=== PATIENT | female | born 1960 | race Caucasian/White ===

== ENCOUNTER 2017-12-07 16:32 | Emergency (ER) | payer SELFPAY ==
[2017-12-07 16:36] VITALS: TEMP 97.4
[2017-12-07 17:31] LABS: BASO # 0.1 K/uL (0.0-0.2); BASO % 1.5 % (0.0-2.0); EOS % 0.4 % (0.0-4.0); HEMOGLOBIN 12.1 g/dL (12.0-16.0); LYMPH # 4.8 K/uL (1.0-4.3); MEAN CELL VOLUME 92.4 fl (81.0-99.0); MEAN CORPUSCULAR HEMOGLOBIN 30.7 pg (27.0-31.0); MEAN CORPUSCULAR HGB CONC 33.2 g/dL (33.0-37.0); MEAN PLATELET VOLUME 7.6 fl (7.2-11.7); MONO # 0.3 K/uL (0.0-0.8); MONO % 4.6 % (0.0-10.0); NEUT # 2.2 K/uL (1.8-7.0); NEUT % 29.5 % (50.0-75.0); NRBC % 0.2 % (0.0-0.0); RBC 3.96 Mil/uL (3.80-5.20); RED CELL DISTRIBUTION WIDTH 17.8 % (11.5-14.5); WHITE BLOOD COUNT 7.5 K/uL (4.8-10.8)
[2017-12-07 18:09] LABS: ALB/GLOB RATIO 1.3 (1.0-2.1); ALBUMIN 3.8 g/dL (3.5-5.0); ALT/SGPT 69 U/L (9-52); AST/SGOT 91 U/L (14-36); BLOOD UREA NITROGEN 12 mg/dl (7-17); CALCIUM 8.6 mg/dL (8.4-10.2); GFR AFRICAN-AMERICAN > 60; GFR NON-AFRICAN AMERICAN > 60
--- NOTE | 2017-12-07 18:13 | ED PDOC ---
HPI: Psych/Substance Abuse Time Seen by Provider: 12/07/17 16:39 Chief Complaint (Nursing): Alcohol Ingestion Chief Complaint (Provider): EMS arrival possible intoxication found at train station ED Caveat: Intoxicated History Per: Patient History/Exam Limitations: no limitations Onset/Duration Of Symptoms: Days Current Symptoms Are (Timing): Still Present Suicide/Self Injury Attempted (Context): None Severity: None Associated Symptoms: denies: Depression, Paranoia, Suicidal Thoughts Additional Complaint(s): 57yo female per EMS found at train station, possibly intoxicated, per report coming from work in [place] to home in [place], found on ground. Patient is not forthcoming with history, work colleague accompanying her, states she appeared disoriented and dizzy. EMS stated they smelled etoh. Patient states she fell last week seen at [facility] had CT brain neg and wound repair to occipital scalp. 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 Did not eat much today. Past Medical History Reviewed: Historical Data, Nursing Documentation, Vital Signs, Unable To Obtain Vital Signs: Last Vital Signs Temp 97.4 F L 12/07/17 16:34 Pulse 91 H 12/07/17 16:34 Resp 16 12/07/17 16:34 BP 104/72 12/07/17 16:34 Pulse Ox 96 12/07/17 16:34 - Medical History PMH: Diabetes, Pancreatitis - Immunization History Hx Tetanus Toxoid Vaccination: No Hx Influenza Vaccination: No Hx Pneumococcal Vaccination: No - Allergies Allergies/Adverse Reactions: Allergies Allergy/AdvReac Type Severity Reaction Status Date / Time No Known Allergies Allergy Verified 12/07/17 16:33 Review of Systems Review Of Systems: ROS cannot be obtained secondary to pt's inabilty to answer questions. (limited secondary to poor historian) Constitutional: Negative for: Fever, Chills Cardiovascular: Negative for: Chest Pain Respiratory: Negative for: Cough Gastrointestinal: Negative for: Nausea Genitourinary Female: Negative for: Dysuria Musculoskeletal: Negative for: Neck Pain Skin: Negative for: Rash Neurological: Negative for: Weakness, Numbness Physical Exam - Reviewed Nursing Documentation Reviewed: Yes Vital Signs Reviewed: Yes - Physical Exam Appears: Positive for: Non-toxic, No Acute Distress Head Exam: Positive for: ATRAUMATIC (occipital scalp healing laceration clean/ intact sutures in place), NORMAL INSPECTION, NORMOCEPHALIC Skin: Positive for: Normal Color, Warm, DRY Eye Exam: Positive for: EOMI, Normal appearance, PERRL ENT: Positive for: Normal ENT Inspection Neck: Positive for: Normal, Painless ROM Cardiovascular/Chest: Positive for: Regular Rate, Rhythm Respiratory: Positive for: CNT, Normal Breath Sounds Gastrointestinal/Abdominal: Positive for: Soft. Negative for: Tenderness Back: Positive for: Normal Inspection Extremity: Positive for: Normal ROM Neurologic/Psych: Positive for: Alert, Other (mildly intoxicated appearing, poor insight). 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 Patient wants to leave, likely a functional alcoholic. Explained very dangerous etoh level, will restrain if needed until sobriety and insight obtained. Disposition - Clinical Impression Clinical Impression: Alcohol abuse - Patient ED Disposition Is Patient to be Admitted: Transfer of Care - Disposition Disposition: Transfer of Care Disposition Time: 18:50 Condition: FAIR Forms: [facility] (Micronesian) Patient Signed Over To: Todd Simental Handoff Comments: pending sobriety, re-eval/ dispo
--- NOTE | 2017-12-07 20:14 | ED PDOC ---
- Laboratory Results Result Diagrams: 12/07/17 17:15 12/07/17 17:15 - ECG O2 Sat by Pulse Oximetry: 96 Pulse Ox Interpretation: Normal Medical Decision Making Medical Decision MakinPM Patient endorsed to me by Dr. Adams pending sobriety. Patient well appearing, stable. 9PM Patient resting comfortably 1130PM Patient awake, alert, sober, steady gait, cleared medically and psychiatrically for incarceration. Disposition - Clinical Impression Clinical Impression: Alcohol abuse - POA Present On Arrival: None - Disposition Referrals: Alcoholics Anonymous [Outside] Disposition: Routine/Home Disposition Time: 23:30 Condition: IMPROVED Additional Instructions: Medically and psychiatrically cleared for incarceration. Instructions: Alcohol Abuse and Alcoholism (DC) Forms: [facility] (Belgian)
[2017-12-08 05:27] VITALS: BP 131/91; PULSE 95; RESP 18; O2SAT 98
== END 2017-12-07 23:30 ==
LOC: H.ER 16:32
DX: F10.10 Alcohol abuse, uncomplicated (principal); E11.9 Type 2 diabetes mellitus without complications; K85.90 Acute pancreatitis without necrosis or infection, unspecified
CPT/HCPCS: 80053; 82948; 85025; 99285; G0480

== ENCOUNTER 2018-04-24 21:18 | Emergency (ER) | payer SELFPAY ==
[2018-04-24] MEDS ORDERED: Multivitamin (MVI) 10 ML, Folic Acid 1 MG, Thiamine 100 MG in Dextrose 5%/0.45% NS 1,00... IV ONE (21:30)
--- NOTE | 2018-04-24 21:42 | ED PDOC ---
HPI: Altered Mental Status Time Seen by Provider: 04/24/18 21:25 Chief Complaint (Nursing): Altered Mental Status Chief Complaint (Provider): Altered Mental Status History Per: Patient, Other (ALS) History/Exam Limitations: Intoxication Onset/Duration Of Symptoms: Hrs (CABINET INSTALLER) Onset Of Symptoms: <3 Hours Current Symptoms Are (Timing): Still Present Additional Complaint(s): 57 year old female with a history of alcoholism and homelessness presents to the ED via ALS for altered mental status. Patient found to have a blood sugar o 30 in the field. Patient is a known alcoholic and admits to alcohol use. On arrival, patient is awake and alert. She denies any active medical complaints. PMD: none provided Past Medical History Reviewed: Historical Data, Nursing Documentation, Vital Signs Vital Signs: Last Vital Signs Temp 89.4 F L 04/24/18 21:20 Pulse 72 04/24/18 21:20 Resp 18 04/24/18 21:20 BP 81/54 L 04/24/18 21:20 Pulse Ox 98 04/24/18 21:20 - Medical History PMH: Diabetes, Pancreatitis - Family History Family History: States: Unknown Family Hx - Social History Alcohol: > 2 Drinks/Day - Immunization History Hx Tetanus Toxoid Vaccination: No Hx Influenza Vaccination: No Hx Pneumococcal Vaccination: No - Allergies Allergies/Adverse Reactions: Allergies Allergy/AdvReac Type Severity Reaction Status Date / Time No Known Allergies Allergy Verified 12/07/17 16:33 Review of Systems ROS Statement: Except As Marked, All Systems Reviewed And Found Negative Neurological: Positive for: Altered Mental Status Physical Exam - Reviewed Nursing Documentation Reviewed: Yes Vital Signs Reviewed: Yes - Physical Exam Appears: Positive for: Non-toxic, No Acute Distress Head Exam: Positive for: ATRAUMATIC, NORMOCEPHALIC Skin: Positive for: Normal Color, Warm, Dry Eye Exam: Positive for: Normal appearance, EOMI, PERRL Neck: Positive for: Normal Cardiovascular/Chest: Positive for: Regular Rate, Rhythm. Negative for: Murmur Respiratory: Positive for: Normal Breath Sounds. Negative for: Respiratory Distress Gastrointestinal/Abdominal: Positive for: Normal Exam, Soft. Negative for: Tenderness Back: Positive for: Normal Inspection Extremity: Positive for: Normal ROM (upper and lower). Negative for: Pedal Edema, Deformity Neurologic/Psych: Positive for: Alert, Oriented (x3) - Laboratory Results Result Diagrams: 04/24/18 22:00 04/24/18 22:00 - ECG O2 Sat by Pulse Oximetry: 98 (RA) Pulse Ox Interpretation: Normal Medical Decision Making Medical Decision Making: Time: 2115 Initial Impression: 57 yo with altered mental status Initial Plan: --EKG --Labs 6:25 Patient remained Euclycemic for duration of stay in the ED. Upon provider evaluation patient is medically stable, and requires no further treatment in the ED at this time. Patient will be discharged home. Counseling was provided and all questions were answered regarding diagnosis and need for follow up with PMD. There is agreement to discharge plan. Return if symptoms persist or worsen. Scribe Attestation: Documented by Olivia Zamudio, acting as a scribe for Zack Hernandez MD Provider Scribe Attestation: All medical record entries made by the Scribe were at my direction and personally dictated by me. I have reviewed the chart and agree that the record accurately reflects my personal performance of the history, physical exam, medical decision making, and the department course for this patient. I have also personally directed, reviewed, and agree with the discharge instructions and disposition. Disposition - Clinical Impression Clinical Impression: Hypoglycemia, Alcohol intoxication - Patient ED Disposition Is Patient to be Admitted: No - Disposition Disposition: Routine/Home Disposition Time: 06:25 Condition: STABLE Instructions: Low Blood Sugar, Adult (DC) Forms: [facility] (Faroese)
[2018-04-24 22:26] LABS: BASO # 0.1 K/uL (0.0-0.2); BASO % 0.8 % (0.0-2.0); EOS % 0.5 % (0.0-4.0); LYMPH # 2.8 K/uL (1.0-4.3); LYMPH % 31.9 % (20.0-40.0); MEAN CELL VOLUME 96.7 fl (81.0-99.0); MEAN CORPUSCULAR HEMOGLOBIN 32.7 pg (27.0-31.0); MEAN CORPUSCULAR HGB CONC 33.8 g/dL (33.0-37.0); MEAN PLATELET VOLUME 7.1 fl (7.2-11.7); MONO # 0.7 K/uL (0.0-0.8); MONO % 7.8 % (0.0-10.0); NEUT # 5.1 K/uL (1.8-7.0); NRBC % 0.1 % (0.0-0.0); RBC 3.36 Mil/uL (3.80-5.20); RED CELL DISTRIBUTION WIDTH 13.8 % (11.5-14.5); WHITE BLOOD COUNT 8.7 K/uL (4.8-10.8)
[2018-04-24 22:37] LABS: INR 0.9
[2018-04-24 22:38] LABS: ALB/GLOB RATIO 1.4 (1.0-2.1); ALBUMIN 3.5 g/dL (3.5-5.0); ALT/SGPT 42 U/L (9-52); AST/SGOT 42 U/L (14-36); BLOOD UREA NITROGEN 17 mg/dl (7-17); CALCIUM 8.6 mg/dL (8.4-10.2); GFR NON-AFRICAN AMERICAN > 60
[2018-04-24 22:40] LABS: PARTIAL THROMBOPLASTIN TIME 26.8 Seconds (25.6-37.1)
[2018-04-24 23:34] LABS: PROTHROMBIN TIME 26.8 Seconds (9.8-13.1)
[2018-04-24 23:46] VITALS: RESP 16
[2018-04-25 05:26] VITALS: O2SAT 98
--- NOTE | 2018-04-25 06:18 | CARD ---
APPROVED REPORT Date of service: 04/24/2018 EKG Measurement Heart [id number] NM [id number] <Conclusion> Normal sinus rhythm Anterior infarct, age undetermined Prolonged QT Abnormal ECG
[2018-04-25 06:28] VITALS: BP 134/90; PULSE 86; TEMP 97.6
== END 2018-04-25 06:27 | disposition home or self-care (01) ==
LOC: H.ER 21:18
DX: E11.65 Type 2 diabetes mellitus with hyperglycemia (principal); F10.129 Alcohol abuse with intoxication, unspecified; Z59.0 Homelessness; K85.90 Acute pancreatitis without necrosis or infection, unspecified
CPT/HCPCS: 80053; 82948; 85025; 85610; 85730; 93005; 99284; G0480; J3411; J7042

== ENCOUNTER 2018-05-24 15:24 | Emergency (ER) | payer SELFPAY ==
[2018-05-24] MEDS ORDERED: Sodium Chloride 0.9% 1,000 ML IV STA (15:54)
--- NOTE | 2018-05-24 15:59 | ED PDOC ---
HPI: Psych/Substance Abuse Time Seen by Provider: 05/24/18 15:31 Chief Complaint (Nursing): Alcohol Ingestion Chief Complaint (Provider): ETOH History Per: Patient, EMS Additional Complaint(s): 58 yo female, has presented to ED in past for ETOH abuse, brought in via BLS for evaluation of alcohol intoxication. Patient admits to drinking alcohol today. [place]. Pt noted to have Hx of pancreatitis and DM on chart review, pt denies at this time Past Medical History Reviewed: Nursing Documentation, Vital Signs Vital Signs: Last Vital Signs Temp 98.0 F 05/24/18 15:27 Pulse 95 H 05/24/18 15:27 Resp 16 05/24/18 15:27 BP 102/71 05/24/18 15:27 Pulse Ox 92 L 05/24/18 15:27 - Medical History PMH: Diabetes, Pancreatitis - Family History Family History: States: Unknown Family Hx - Living Arrangements Living Arrangements: Other - Social History Current smoker - smoking cessation education provided: No Alcohol: > 2 Drinks/Day Drugs: Cannabis - Immunization History Hx Tetanus Toxoid Vaccination: No Hx Influenza Vaccination: No Hx Pneumococcal Vaccination: No - Allergies Allergies/Adverse Reactions: Allergies Allergy/AdvReac Type Severity Reaction Status Date / Time No Known Allergies Allergy Verified 05/24/18 15:27 Review of Systems ROS Statement: Except As Marked, All Systems Reviewed And Found Negative Physical Exam - Reviewed Nursing Documentation Reviewed: Yes Vital Signs Reviewed: Yes - Physical Exam Appears: Positive for: Well, Non-toxic, No Acute Distress Head Exam: Positive for: ATRAUMATIC, NORMAL INSPECTION, NORMOCEPHALIC Skin: Positive for: Normal Color, Warm, DRY Eye Exam: Positive for: EOMI, Normal appearance, PERRL ENT: Positive for: Normal ENT Inspection Neck: Positive for: Normal, Painless ROM Cardiovascular/Chest: Positive for: Regular Rate, Rhythm Respiratory: Positive for: CNT, Normal Breath Sounds Gastrointestinal/Abdominal: Positive for: Normal Exam, Soft Back: Positive for: Normal Inspection Extremity: Positive for: Normal ROM Neurologic/Psych: Positive for: Alert, Oriented - Laboratory Results Result Diagrams: 05/24/18 16:32 05/24/18 16:32 - ECG O2 Sat by Pulse Oximetry: 92 Medical Decision Making Medical Decision Making: EKG: New LBBB noted, as read by HUMAIRA And ED MD. LBBB not noted on previous study in February. Labs resulted and reviewed. ETOH 392 Case discussed with hospitalist. arrangements made for telemetry Consult placed to Dr. Garcia by brief writer Disposition - Clinical Impression Clinical Impression: Alcohol intoxication, Alcohol abuse, Left bundle branch block - Patient ED Disposition Is Patient to be Admitted: Yes - Disposition Disposition Time: 18:25 Condition: STABLE Forms: [facility] (Pashto) - Pt Status Changed To: Hospital Disposition Of: Observation
[2018-05-24 16:37] LABS: BASO # 0.2 K/uL (0.0-0.2); BASO % 3.6 % (0.0-2.0); EOS % 0.6 % (0.0-4.0); HEMOGLOBIN 11.3 g/dL (12.0-16.0); LYMPH # 2.9 K/uL (1.0-4.3); LYMPH % 49.7 % (20.0-40.0); MEAN CELL VOLUME 95.5 fl (81.0-99.0); MEAN CORPUSCULAR HEMOGLOBIN 31.9 pg (27.0-31.0); MEAN CORPUSCULAR HGB CONC 33.4 g/dL (33.0-37.0); MONO # 0.6 K/uL (0.0-0.8); MONO % 9.4 % (0.0-10.0); NEUT # 2.2 K/uL (1.8-7.0); NEUT % 36.7 % (50.0-75.0); NRBC % 0.1 % (0.0-0.0); PLATELET COUNT 337 K/uL (130-400); RBC 3.56 Mil/uL (3.80-5.20); RED CELL DISTRIBUTION WIDTH 15.3 % (11.5-14.5); WHITE BLOOD COUNT 5.9 K/uL (4.8-10.8)
--- NOTE | 2018-05-24 16:39 | RAD ---
Date of service: 05/24/2018 PROCEDURE: CHEST RADIOGRAPH, 1 VIEW HISTORY: LBBB COMPARISON: None available. FINDINGS: LUNGS: Clear. PLEURA: No pneumothorax or pleural fluid seen. CARDIOVASCULAR: Normal. OSSEOUS STRUCTURES: No significant abnormalities. VISUALIZED UPPER ABDOMEN: Normal. OTHER FINDINGS: None. IMPRESSION: No active disease.
[2018-05-24 16:49] LABS: ALB/GLOB RATIO 1.3 (1.0-2.1); ALBUMIN 3.9 g/dL (3.5-5.0); BLOOD UREA NITROGEN 13 mg/dl (7-17)
[2018-05-24 16:50] LABS: ALT/SGPT 75 U/L (9-52); AST/SGOT 100 U/L (14-36); CALCIUM 8.6 mg/dL (8.4-10.2); GFR NON-AFRICAN AMERICAN > 60
[2018-05-24 17:42] LABS: BARBITURATES, UR NEGATIVE (NEGATIVE); BENZODIAZEPINES, UR NEGATIVE (NEGATIVE); OPIATES, UR NEGATIVE (NEGATIVE); PHENCYCLIDINE, UR NEGATIVE (NEGATIVE)
[2018-05-24 17:54] LABS: ANISOCYTOSIS SLIGHT; BANDS 3 % (0-2); BASOPHIL 1 % (0-2); EOSINOPHIL 1 % (0-7); LYMPHOCYTE 47 % (20-50); MONOCYTE 8 % (0-10); NEUTROPHIL 40 % (42-75); PLATELET ESTIMATE NORMAL (NORMAL); TOTAL CELLS COUNTED 100
[2018-05-24] MEDS ORDERED: Multivitamin (MVI) 10 ML, Thiamine 100 MG, Folic Acid 1 MG in Sodium Chloride 0.9% 1,00... IV ONE (19:59)
[2018-05-24] MEDS ORDERED: Dextrose 50% SYRINGE Inj (50 ml) IV PRN (20:00)
[2018-05-24] MEDS ORDERED: Glucagon Recombinant 1 mg Inj IM PRN (20:00)
--- NOTE | 2018-05-24 20:04 | CP.PCM.HP ---
Addendum entered and electronically signed by Moraima Castaneda MD 05/24/18 20:53: Patient seen and examined bedside . All chart and clinical data reviewed. Case discussed with resident . Agree with assessment and plan. 58 y/o alcoholic patient , homeless with PMH IDDM , chronic pancreatitis brought to ER intoxicated for evaluation . patient states she came to ER because she was sneezing Her ETOH level found to be 392 EKG shoed new Left Bundle branchj block She denies any chest pain Will place her under observation in telemetry Cycle Troponins Q8 hours [facility] protocol Seizure / withdrawal precautions Start accuchecks, IVF , insulin coverage Original Note: History of Present Illness - History of Present Illness History of Present Illness: CC: pt brought to ED obtunded 2/2 to ETOH abuse HPI: 58 y/o female, with PMHx remarkable for ETOH abuse, IDDM, and Chronic pancreatitis presented to the ED via EMS after being discovered to be lethargic and obtunded [place] station. In the ED she became more responsive and reported she has been drinking heavily today. She does not remember how much ETOH she has consumed. She also reports "my sugars have been going crazy today", but upon further questioning pt is unable to state values of BS readings and if she did or did not take her insulin today. Pt does not endorse any other complaints today. Denies any fever/chills, headaches, changes in vision, CP/SOB/Palpitations, N/V/D/C, urinary symptoms. ROS: as per HPI, otherwise negative PMD: [facility] PMHx: IDDM, Chronic pancreatitis, ETOH abuse Meds: Lantus (pt is unable to confirm dosing), Creon ALL: NKDA Psurghx: pancreatic stenting Phopshx: various ED visits for ETOH, pt reports recent admission to [facility] ICU for DKA SocialHx: heavy ETOH abuse, denies drugs/tobacco FamilyHx: unable to answer ED Course: Vitals: 98.0 F, BP 102/71, HR 95, RR 16, POX 92% RA CBC: 5.9>11.3/34.0<337 CMP: AST/ALT: 100/75, BS 312, no anion gap ETOH 392 UDS:+cabanoids EKG: New LBBB ED Tx: -NS @ 125mls/hr -cardio consult Present on Admission - Present on Admission Any Indicators Present on Admission: Yes History of DVT/PE: No History of Uncontrolled Diabetes: Yes Urinary Catheter: No Decubitus Ulcer Present: No Review of Systems - Review of Systems Systems not reviewed;Unavailable: Intoxicated Past Patient History - Past Social History Smoking Status: Former Smoker Alcohol: > 2 Drinks/Day Drugs: Cannabis Home Situation {Lives}: Homeless - ENDOCRINE/METABOLIC Hx Diabetes Mellitus Type 2: Yes - GASTROINTESTINAL Hx Pancreatitis: Yes - PSYCHIATRIC Hx Substance Use: No Other/Comment: Alcohol abuse - ANESTHESIA Hx Anesthesia: No Meds Allergies/Adverse Reactions: Allergies Allergy/AdvReac Type Severity Reaction Status Date / Time No Known Allergies Allergy Verified 05/24/18 15:27 Physical Exam - Constitutional Appears: No Acute Distress, Unkempt - Head Exam Head Exam: ATRAUMATIC, NORMOCEPHALIC - Eye Exam Eye Exam: EOMI, Nystagmus. absent: Scleral icterus Pupil Exam: PERRL - ENT Exam ENT Exam: Mucous Membranes Moist - Neck Exam Neck exam: Negative for: Lymphadenopathy - Respiratory Exam Respiratory Exam: Clear to Auscultation Bilateral, NORMAL BREATHING PATTERN. absent: Accessory Muscle Use, Rales, Rhonchi, Wheezes, Respiratory Distress - Cardiovascular Exam Cardiovascular Exam: REGULAR RHYTHM, RRR, +S1, +S2. absent: Tachycardia, JVD, Rubs, Systolic Murmur - GI/Abdominal Exam GI & Abdominal Exam: Normal Bowel Sounds, Soft. absent: Tenderness - Extremities Exam Extremities exam: Positive for: normal capillary refill, normal inspection, pedal pulses present. Negative for: pedal edema - Neurological Exam Neurological exam: Alert, CN II-XII Intact, Oriented x3 - Psychiatric Exam Psychiatric exam: Anxious - Skin Skin Exam: Dry, Normal Color, Warm Results - Vital Signs Recent Vital Signs: Last Vital Signs Temp 98.0 F 05/24/18 15:27 Pulse 95 H 05/24/18 15:27 Resp 16 05/24/18 15:27 BP 102/71 05/24/18 15:27 Pulse Ox 92 L 05/24/18 18:25 - Labs Result Diagrams: 05/24/18 16:32 05/24/18 16:32 Labs: Laboratory Results - last 24 hr 05/24/18 05/24/18 05/24/18 15:47 16:32 16:32 WBC 5.9 RBC 3.56 L Hgb 11.3 L Hct 34.0 MCV 95.5 MCH 31.9 H MCHC 33.4 RDW 15.3 H Plt Count 337 MPV 7.0 L Neut % (Auto) 36.7 L Lymph % (Auto) 49.7 H Boyle % (Auto) 9.4 Eos % (Auto) 0.6 Baso % (Auto) 3.6 H Neut # (Auto) 2.2 Lymph # (Auto) 2.9 Boyle # (Auto) 0.6 Eos # (Auto) 0.0 Baso # (Auto) 0.2 Neutrophils % (Manual) 40 L Band Neutrophils % 3 H Lymphocytes % (Manual) 47 Monocytes % (Manual) 8 Eosinophils % (Manual) 1 Basophils % (Manual) 1 Platelet Estimate Normal Anisocytosis (manual) Slight Macrocytosis (manual) Slight Sodium 141 Potassium 4.6 Chloride 104 Carbon Dioxide 24 Anion Gap 18 BUN 13 Creatinine 0.7 Est GFR ( Amer) > 60 Est GFR (Non-Af Amer) > 60 POC Glucose (mg/dL) 323 H Random Glucose 312 H Calcium 8.6 Total Bilirubin 0.2 AST 100 H D ALT 75 H D Alkaline Phosphatase 77 Troponin I < 0.0120 Total Protein 7.0 Albumin 3.9 Globulin 3.1 Albumin/Globulin Ratio 1.3 Urine Opiates Screen Urine Methadone Screen Ur Barbiturates Screen Ur Phencyclidine Scrn Ur Amphetamines Screen U Benzodiazepines Scrn U Oth Cocaine Metabols U Cannabinoids Screen Alcohol, Quantitative 392 H* 05/24/18 17:00 WBC RBC Hgb Hct MCV MCH MCHC RDW Plt Count MPV Neut % (Auto) Lymph % (Auto) Boyle % (Auto) Eos % (Auto) Baso % (Auto) Neut # (Auto) Lymph # (Auto) Boyle # (Auto) Eos # (Auto) Baso # (Auto) Neutrophils % (Manual) Band Neutrophils % Lymphocytes % (Manual) Monocytes % (Manual) Eosinophils % (Manual) Basophils % (Manual) Platelet Estimate Anisocytosis (manual) Macrocytosis (manual) Sodium Potassium Chloride Carbon Dioxide Anion Gap BUN Creatinine Est GFR ( Amer) Est GFR (Non-Af Amer) POC Glucose (mg/dL) Random Glucose Calcium Total Bilirubin AST ALT Alkaline Phosphatase Troponin I Total Protein Albumin Globulin Albumin/Globulin Ratio Urine Opiates Screen Negative Urine Methadone Screen Negative Ur Barbiturates Screen Negative Ur Phencyclidine Scrn Negative Ur Amphetamines Screen Negative U Benzodiazepines Scrn Negative U Oth Cocaine Metabols Negative U Cannabinoids Screen Positive H Alcohol, Quantitative Assessment & Plan - Assessment and Plan (Free Text) Assessment: 58 y/o female with PMHx of IDDM2, ETOH abuse, Chronic pancreatitis admitted for ETOH intoxication and new LBBB. Plan: 1) New LBBB -no LBBB seen on February EKG -asymptomatic -troponin I <0.0120 -cardiology consult pending -lipid panel pending -tele monitoring 2) Acute ETOH Intoxication -serum ETOH 392 -IV fluid hydration -banana bag -zofran PRN nausea -CIWA protocol -Libirum 50mg PRN as per CIWA 3) IDDM2 -unknown control -[id number] pending -c/w lantus as per med rec -lispo correction scale, medium dose protocol -hypoglycemia protocol 4) Transaminasemia -likely 2/2 to acute ETOH abuse -AST/ALT: 100/75 -fluid hydration -repeat AM CMP 5) Diet -moderate carbohydrate 6) Prophlaxis -lovenox 40mg SC QD 7) Code Status -full code
[2018-05-24 21:56] LABS: HDL CHOLESTEROL 60 MG/DL (30-70)
[2018-05-24] MEDS ORDERED: Insulin Lispro (humaLOG) 100 Units/ml Inj SC SCH (22:00)
[2018-05-24 22:09] LABS: LDL CHOLESTEROL < 30 mg/dL (0-129)
[2018-05-25] MEDS ORDERED: Insulin Detemir 100 Units/ml Inj SC SCH (09:00)
[2018-05-25] MEDS ORDERED: Insulin Lispro (humaLOG) 100 Units/ml Inj SC SCH (09:00)
[2018-05-25 09:35] VITALS: BP 121/60; PULSE 88; RESP 20; TEMP 98.1; O2SAT 98
--- NOTE | 2018-05-25 10:14 | CARD ---
APPROVED REPORT Date of service: 05/24/2018 EKG Measurement Heart [id number] <Conclusion> Sinus tachycardia Left bundle branch block Abnormal ECG
== END 2018-05-25 01:45 | disposition left against medical advice (07) ==
LOC: H.ER 15:24 → UNDOADMOB 18:40 → H.ERHOLD 18:40 → H.ER 05-25 01:45
DX: F10.129 Alcohol abuse with intoxication, unspecified (principal); I44.7 Left bundle-branch block, unspecified; Z59.0 Homelessness; E11.9 Type 2 diabetes mellitus without complications; K85.90 Acute pancreatitis without necrosis or infection, unspecified
CPT/HCPCS: 71045; 80053; 80061; 81025; 82948; 83036; 84484; 85025; 93005; 99285; G0480; J7030